=== PATIENT | male | born 1970 | race Two or more races ===

== ENCOUNTER 2019-10-17 20:51 | Emergency (ER) | payer OTHER ==
[~2019-10-17] VITALS: Ht 154.9 cm; Wt 56.7 kg
--- NOTE | 2019-10-17 21:00 | NUR ---
[facility] [employer] IN CUSTODU FOR EVALUATION OF R INDEX FINGER LACERATION W/ ACTIVE BLEEDING
--- NOTE | 2019-10-17 21:22 | NUR ---
ADOLFO HENRY PAC AT THE BED SIDE
--- NOTE | 2019-10-17 21:37 | NUR ---
X. RAY TECH AT THE BED SIDE
[2019-10-17] MEDS ORDERED: GELATIN SPONGE,ABSORBABLE 1 SPONGE SPONGE TP ONE ×2 (21:59→22:09)
[2019-10-17] MEDS ORDERED: CEPHALEXIN MONOHYDRATE 500 MG CAPSULE PO ONE ×2 (22:00→22:01)
--- NOTE | 2019-10-17 22:08 | NUR ---
TECH AT THE BED SIDE TO APPLY SURGIFOAM.
--- NOTE | 2019-10-17 22:30 | NUR ---
ADOLFO HENRY PAC AT THE BED SIDE
--- NOTE | 2019-10-17 22:40 | NUR ---
Patient discharged in custody in stable condition. Rx and Written and verbal after care instructions given. Patient verbalizes understanding of instruction. dressing on r index finger C/D/I with no bleeding,
[2019-10-18 00:01] VITALS: BP 119/80
== END 2019-10-17 22:40 ==
LOC: ER 20:55
DX: S61.210A Laceration without foreign body of right index finger without damage to nail, initial encounter (principal); W26.0XXA Contact with knife, initial encounter; Y93.89 Activity, other specified; Y92.89 Other specified places as the place of occurrence of the external cause; Y99.8 Other external cause status
CPT/HCPCS: 73140; 99283; A6403